=== PATIENT | male | born 1985 | race African-American/Black ===

== ENCOUNTER 2016-08-07 00:03 | Emergency (ER) | payer OTHER ==
[~2016-08-07] VITALS: Ht 182.9 cm; Wt 96.3 kg
[~2016-08-07 00:03] MED LIST: BACT800T5 PO; CYCL5TAB PO; LORTA5 PO; NAPR500 PO; TRAM50 PO; Z.0.NO CURRENT MEDS
[2016-08-07 00:13] VITALS: BP 121/82; PULSE 77; RESP 18; TEMP 99.4; O2SAT 98
[2016-08-07] MEDS ORDERED: ONDANSETRON HCL 4 MG/2 ML VIAL IV PUSH ONE (00:30)
[2016-08-07] MEDS ORDERED: SODIUM CHLOR 0.9% 1000 ML INJ 1,000 ML IV ONE (00:30)
[2016-08-07 01:00] LABS: AUTOMATED NEUTROPHIL # 4.2 TH/MM3 (1.8-7.7); BASOPHIL % 0.6 % (0.0-2.0); EOSINOPHIL % 0.1 % (0.0-4.0); HEMATOCRIT 41.7 % (39.0-51.0); HEMO FLAGS DIFF FINAL; LYMPH % 20.9 % (9.0-44.0); LYMPHOCYTE # 1.4 TH/MM3 (1.0-4.8); MEAN CELL VOLUME 82.2 FL (80.0-100.0); MEAN CORPUSCULAR HEMOGLOBIN 27.7 PG (27.0-34.0); MEAN CORPUSCULAR HGB CONC 33.7 % (32.0-36.0); MONO % 18.2 % (0.0-8.0); NEUT % 60.2 % (16.0-70.0); PLATELET COUNT 142 TH/MM3 (150-450); RED BLOOD COUNT 5.07 MIL/MM3 (4.50-5.90); RED CELL DISTRIBUTION WIDTH 12.1 % (11.6-17.2); WHITE BLOOD COUNT 6.9 TH/MM3 (4.0-11.0)
[2016-08-07] MEDS ORDERED: CYCL7.5T33 PO (01:04)
[2016-08-07] MEDS ORDERED: CYCL5TAB PO (01:05)
--- NOTE | 2016-08-07 01:06 | RADHPO ---
EXAM DATE/TIME: 08/07/2016 00:46 [facility] COMPARISON: No previous studies available for comparison. INDICATIONS : Fever. MEDICAL HISTORY : None. SURGICAL HISTORY : None. ENCOUNTER: Initial ACUITY: 1 day PAIN SCORE: 8/10 LOCATION: Bilateral chest FINDINGS: A single view of the chest demonstrates the lungs to be symmetrically aerated without evidence of mas s, infiltrate or effusion. The cardiomediastinal contours are unremarkable. Osseous structures are intact. CONCLUSION: 1. No acute cardiopulmonary disease. Sabino Chopra MD on August 07, 2016 at 1:05 Board Certified Radiologist. This report was verified electronically.
[2016-08-07 01:11] LABS: CHLORIDE 106 MEQ/L (98-107); POTASSIUM 3.6 MEQ/L (3.5-5.1); SODIUM (NA) 141 MEQ/L (136-145)
[2016-08-07 01:15] LABS: ANION GAP 8 MEQ/L (5-15); BICARBONATE 27.1 MEQ/L (21.0-32.0); BLOOD UREA NITROGEN 11 MG/DL (7-18)
[2016-08-07] MEDS ORDERED: KETOROLAC TROMETHAMINE 30 MG/ML (IVP) VIAL IV PUSH ONE (01:15)
[2016-08-07 01:17] LABS: ALT (GPT) 23 U/L (12-78)
[2016-08-07 01:18] LABS: AST (GOT) 17 U/L (15-37); GLOMERULAR FILTRATION RATE 95 ML/MIN (>89)
--- NOTE | 2016-08-07 01:18 | PD ---
HPI Chief Complaint: Abdominal Pain Time Seen by Provider: 00:29 Travel History International Travel<30 days: No Contact w/Intl Traveler<30days: No Traveled to known affect area: No History of Present Illness HPI 31-year-old male presents to the emergency department with flulike symptoms since . Patient states symptoms have been worsening. Today patient developed abdominal pain with nausea and vomiting. No hematemesis no coffee- ground emesis. Temperature elevation has been 10 1F. Patient has been using [id number] NyQuil and take Mucinex tonight. Patient also loose stool and diarrhea tonight. No hematemesis no coffee-ground emesis no melena hematochezia. Patient denies dysuria frequency urgency or flank pain. Patient has had very congested cough with yellow-green sputum production. Overall pain is estimated as 10 over 10 in intensity. Patient is unable to identify exacerbating or alleviating factors. Patient denies any chronic medical conditions. No other family members are ill. PFSH Past Medical History Narrative Medical Negative past medical history negative surgical history no tobacco use nursing notes reviewed Autoimmune Disease: No Blood Disorders: No Cancer: No Cardiovascular Problems: No Genitourinary: No Musculoskeletal: No Neurologic: No Psychiatric: No Respiratory: No Tetanus Vaccination: > 5 Years Influenza Vaccination: No Past Surgical History Abdominal Surgery: No Cardiac Surgery: No Ear Surgery: No Endocrine Surgery: No Eye Surgery: No Genitourinary Surgery: No Gynecologic Surgery: No Oral Surgery: No Pacemaker: No Thoracic Surgery: No Social History Alcohol Use: Yes (OCC) Tobacco Use: No Substance Use: No Allergies-Medications (Allergen,Severity, Reaction): Coded Allergies: No Known Allergies (Verified , 08/07/16) Reported Meds & Prescriptions Reported Meds & Active Scripts Active Proventil Hfa 6.7 GM Inh (Albuterol Sulfate) 90 Mcg/Act Aer 2 Puff INH Q4-6H PRN Phenergan (Promethazine HCl) 25 Mg Tab 25 Mg PO Q6H PRN Zithromax Z-Doe (Azithromycin) 250 Mg Dspk 250 Mg PO DIRECTED 500 MG (2 tabs) day 1, then 1 tab days 2-5. Reported Flexeril (Cyclobenzaprine HCl) 5 Mg Tab 5 Mg PO TID PRN Review of Systems Except as stated in HPI: all other systems reviewed are Neg General / Constitutional: Positive: Fever, Chills HENT: Positive: Headaches, Sore Throat, Congestion, No: Neck Pain, Earache Cardiovascular: No: Chest Pain or Discomfort Respiratory: Positive: Cough, No: Shortness of Breath Gastrointestinal: Positive: Nausea, Vomiting, Diarrhea, Abdominal Pain Genitourinary: No: Urgency, Frequency, Dysuria, Flank Pain Musculoskeletal: Positive: Myalgias, Arthralgias Skin: No Rash Neurologic: Positive: Weakness Psychiatric: No: Anxiety Hematologic/Lymphatic: No: Lymph Node Enlargement Physical Exam Narrative GENERAL: Well-developed well-nourished male in no acute distress no respiratory distress SKIN: Warm and dry. HEAD: Normocephalic. EYES: No scleral icterus. No injection or drainage. ENT: Mucous membranes moist airway is patent posterior pharynx with erythema without exudate of change or edema. NECK: Supple, trachea midline. No JVD or lymphadenopathy. CARDIOVASCULAR: Regular rate and rhythm without murmurs, gallops, or rubs. RESPIRATORY: Breath sounds equal bilaterally. No accessory muscle use. GASTROINTESTINAL: Abdomen soft, periumbilical tenderness to direct palpation left greater than right without guarding or rebound, nondistended. MUSCULOSKELETAL: No cyanosis, or edema. BACK: Nontender without obvious deformity. No CVA tenderness. Data Data Last Documented VS Vital Signs Date Time Temp Pulse Resp B/P Pulse Ox O2 Delivery O2 Flow Rate FiO2 08/07/16 04:15 98.7 71 18 141/74 96 Room Air Orders Complete Blood Count With Diff (08/07/16 00:30) Comprehensive Metabolic Panel (08/07/16 00:30) Lipase (08/07/16 00:30) Lactic Acid (08/07/16 00:30) Urinalysis - C+S If Indicated (08/07/16 00:30) Iv Access Insert/Monitor (08/07/16 00:30) Ecg Monitoring (08/07/16 00:30) Oximetry (08/07/16 00:30) Chest, Single Ap (08/07/16 00:30) Blood Culture (08/07/16 00:30) Group A Rapid Strep Screen (08/07/16 00:30) Influenzae A/B Antigen (08/07/16 00:30) Sodium Chlor 0.9% 1000 Ml Inj (Ns 1000 M (08/07/16 00:30) Ondansetron Inj (Zofran Inj) (08/07/16 00:30) Ketorolac Inj (Toradol Inj) (08/07/16 01:15) Strep Culture (Group A) (08/07/16 00:45) Ct Abd/Pel W Iv Contrast(Rout) (08/07/16 ) Morphine Inj (Morphine Inj) (08/07/16 02:45) Iohexol 350 Inj (Omnipaque 350 Inj) (08/07/16 03:11) Labs Laboratory Tests Test 08/07/16 08/07/16 00:40 01:45 White Blood Count 6.9 TH/MM3 Red Blood Count 5.07 MIL/MM3 Hemoglobin 14.0 GM/DL Hematocrit 41.7 % Mean Corpuscular Volume 82.2 FL Mean Corpuscular Hemoglobin 27.7 PG Mean Corpuscular Hemoglobin 33.7 % Concent Red Cell Distribution Width 12.1 % Platelet Count 142 TH/MM3 Mean Platelet Volume 9.9 FL Neutrophils (%) (Auto) 60.2 % Lymphocytes (%) (Auto) 20.9 % Monocytes (%) (Auto) 18.2 % Eosinophils (%) (Auto) 0.1 % Basophils (%) (Auto) 0.6 % Neutrophils # (Auto) 4.2 TH/MM3 Lymphocytes # (Auto) 1.4 TH/MM3 Monocytes # (Auto) 1.3 TH/MM3 Eosinophils # (Auto) 0.0 TH/MM3 Basophils # (Auto) 0.0 TH/MM3 CBC Comment DIFF FINAL Differential Comment Sodium Level 141 MEQ/L Potassium Level 3.6 MEQ/L Chloride Level 106 MEQ/L Carbon Dioxide Level 27.1 MEQ/L Anion Gap 8 MEQ/L Blood Urea Nitrogen 11 MG/DL Creatinine 1.10 MG/DL Estimat Glomerular Filtration 95 ML/MIN Rate Random Glucose 108 MG/DL Lactic Acid Level 0.8 mmol/L Calcium Level 8.7 MG/DL Total Bilirubin 0.4 MG/DL Aspartate Amino Transf 17 U/L (AST/SGOT) Alanine Aminotransferase 23 U/L (ALT/SGPT) Alkaline Phosphatase 106 U/L Total Protein 6.7 GM/DL Albumin 3.6 GM/DL Lipase 162 U/L Urine Collection Type Urine Color YELLOW Urine Turbidity CLEAR Urine pH 6.0 Urine Specific [place] GREATER THAN 1.035 Urine Protein 30 mg/dL Urine Glucose (UA) NEG mg/dL Urine Ketones 15 mg/dL Urine Occult Blood NEG Urine Nitrite NEG Urine Bilirubin NEG Urine Leukocyte Esterase NEG Urine RBC 0-2 /hpf Urine WBC 0-2 /hpf Urine Squamous Epithelial 0-5 /hpf Cells Urine Bacteria NONE /hpf Microscopic Urinalysis Comment CULT NOT INDICATED Urine Collection Time MDM Medical Decision Making Medical Screen Exam Complete: Yes Emergency Medical Condition: Yes Medical Record Reviewed: Yes Interpretation(s) CBC & BMP Diagram 08/07/16 00:40 Vital Signs Date Time Temp Pulse Resp B/P Pulse Ox O2 Delivery O2 Flow Rate FiO2 08/07/16 02:14 74 18 143/89 Room Air 08/07/16 02:08 16 08/07/16 01:20 99.5 08/07/16 01:01 Room Air 08/07/16 00:13 99.4 77 18 121/82 98 Last Impressions Chest X-Ray 08/07/16 0030 Signed Impressions: Service Date/Time: Sunday, August 07, 2016 00:46 - CONCLUSION: 1. No acute cardiopulmonary disease. Sabino Chopra MD Abdomen/Pelvis CT 08/07/16 0000 Signed Impressions: Service Date/Time: Sunday, August 07, 2016 03:02 - CONCLUSION: 1. No evidence of acute abdominal or pelvic process. No masses are identified. Sabino Chopra MD Influenza A/B: Negative Differential Diagnosis Viral syndrome, pneumonia, mesenteric adenitis, colitis, atypical appendicitis, UTI Narrative Course IV access obtained specimens collected and sent for resulting patient given bolus of normal saline Influenza test is negative; CBC with automated differential lymphocytosis; chemistries grossly within normal range Chest x-ray reveals no lobar infiltrate; patient continues to complain of abdominal pain therefore CT abdomen and pelvis ordered patient administered Toradol 30 mg IV along with a sulfate [address] abdomen and pelvis reveals no acute abnormality Patient administered morphine sulfate IV Patient stable for outpatient management and follow-up with his primary care physician patient will be given prescription for azithromycin as well as inhaler and as needed Phenergan as well as works out of school excuse Diagnosis Primary Impression: Bronchitis Referrals: Primary Care Physician call for appointment Patient Instructions: General Instructions, Narcotic given in the ED Departure Forms: Tests/Procedures, Work Release Special Instructions: no work x 2 days Additional Instructions: Increase fluid hydration No work 2 days Follow-up with your primary care provider Complete course of antibiotic as prescribed Use inhaler as needed for cough/shortness of breath/wheezing Use Phenergan as prescribed as needed for nausea and/or vomiting Return to the emergency for free concerns or change in condition Med/Other Pt SpecificInfo: Prescription(s) given Scripts Albuterol 6.7 GM Inh (Proventil Hfa 6.7 GM Inh)90 Mcg/Act Aer2 Puff INH Q4-6H PRN (SHORTNESS OF BREATH) #1 INHALER Ref 0 Prov:Rosy Gustafson MD 08/07/16 Promethazine (Phenergan)25 Mg Tab25 Mg PO Q6H PRN (Nausea/Vomiting) #10 TAB Ref 0 Prov:Rosy Gustafson MD 08/07/16 Azithromycin (Zithromax Z-Doe)250 Mg [id number] Mg PO DIRECTED #1 DSPK Ref 0 500 MG (2 tabs) day 1, then 1 tab days 2-5. Prov:Rosy Gustafson MD 08/07/16 Disposition: 01 DISCHARGE HOME Condition: Stable Rosy Gustafson MD Aug 07, 2016 01:18
[2016-08-07 01:19] LABS: TOTAL BILIRUBIN ADULT 0.4 MG/DL (0.2-1.0)
[2016-08-07 01:20] VITALS: TEMP 99.5
[2016-08-07 01:20] LABS: ALKALINE PHOSPHATASE 106 U/L (45-117)
[2016-08-07 02:04] LABS: BLOOD, URINE NEG (NEG); GLUCOSE,URINE NEG (NEG); KETONE, URINE 15 mg/dL (NEG); NITRITE,URINE NEG (NEG)
[2016-08-07 02:09] LABS: COMMENT (UR) CULT NOT INDICATED; COMMENT2 (UR) MUCOUS PRESENT; CULTURE IF INDICATED CULT NOT INDICATED; RBC, URINE 0-2 /hpf (0-3); SQUAMOUS EPITHELIAL CELL URINE 0-5 /hpf (0-5); URINE COLOR YELLOW (YELLW/STRAW); WBC, URINE 0-2 /hpf (0-5)
[2016-08-07 02:14] VITALS: BP 143/89; PULSE 74; RESP 18
[2016-08-07] MEDS ORDERED: MORPHINE SULFATE 4 MG/ML INJ IV PUSH ONE (02:45)
[2016-08-07] MEDS ORDERED: IOHEXOL 350 MG/ML 10 ML VIAL (for RAD DIAG) IV ONE (03:11)
--- NOTE | 2016-08-07 03:30 | RADHPO ---
EXAM DATE/TIME: 08/07/2016 03:02 [facility] COMPARISON: No previous studies available for comparison. INDICATIONS : Diffuse abdominal pain with nausea and vomiting. IV CONTRAST: 95 cc Omnipaque 350 (iohexol) IV Injection Site: Lt AC Lot: [id number] Exp Date: Apr 2019 Lot: Exp Date : ORAL CONTRAST: No oral contrast ingested. RADIATION DOSE: 12.92 CTDIvol (mGy) MEDICAL HISTORY : None SURGICAL HISTORY : None. ENCOUNTER: Initial ACUITY: 2 days PAIN SCALE: 6/10 LOCATION: Abdomen. TECHNIQUE: Volumetric scanning of the abdomen and pelvis was performed. Using automated exposure control and ad justment of the mA and/or kV according to patient size, radiation dose was kept as low as reasonably achievable to obtain optimal diagnostic quality images. FINDINGS: LOWER LUNGS: The visualized lower lungs are clear. LIVER: Homogeneous density without lesion. There is no dilation of the biliary tree. No calcified gallston es. SPLEEN: Normal size without lesion. PANCREAS: Within normal limits. KIDNEYS: Normal in size and shape. There is no mass, stone or hydronephrosis. There is a single simple cyst i n the left kidney measuring 8 mm. ADRENAL GLANDS: Within normal limits. VASCULAR: There is no aortic aneurysm. BOWEL/MESENTERY: The stomach, small bowel, and colon demonstrate no acute abnormality. There is no free intraperitone al air or fluid. Examination of the right lower quadrant demonstrates no abnormality. The appendix is identified and appears normal. ABDOMINAL WALL: Within normal limits. RETROPERITONEUM: There is no lymphadenopathy. BLADDER: No wall thickening or mass. REPRODUCTIVE: Within normal limits. INGUINAL: There is no lymphadenopathy or hernia. MUSCULOSKELETAL: Within normal limits for patient age. CONCLUSION: 1. No evidence of acute abdominal or pelvic process. No masses are identified. Sabino Chopra MD on August 07, 2016 at 3:26 Board Certified Radiologist. This report was verified electronically.
[2016-08-07] MEDS ORDERED: ZITHTAB PO (04:07)
[2016-08-07] MEDS ORDERED: PROM25TA5 PO (04:07)
[2016-08-07 04:15] VITALS: BP 141/74; PULSE 71; RESP 18; TEMP 98.7; O2SAT 96
[2016-08-07] MEDS ORDERED: ALBU6.7H INH ×2 (04:18→04:29)
== END 2016-08-07 04:22 | disposition home or self-care (01) ==
LOC: PHED 00:03
DX: J40 Bronchitis, not specified as acute or chronic (principal); R11.2 Nausea with vomiting, unspecified; R19.7 Diarrhea, unspecified; R10.9 Unspecified abdominal pain
CPT/HCPCS: 71010; 74177; 80053; 81001; 83605; 83690; 85025; 87040; 87081; 87804; 87880; 96361; 96374; 96375; 99284; J1885; J2270; J2405; J7030; Q9967